=== PATIENT | female | born 1970 ===

== ENCOUNTER 2025-04-14 11:21 | Outpatient (CLI) | payer MEDICAID, SELFPAY ==
[2025-04-14 11:46] LABS: Abs Immature Grans 0.02 10^3/uL (0.0-0.06); Absolute Basophil Count 0.02 10^3/uL (0.0-0.2); Absolute Eosinophil Count 0.07 10^3/uL (0.0-0.7); Absolute Lymphocyte Count 1.08 10^3/uL (1.2-3.4); Absolute Monocyte Count 0.77 10^3/uL (0.1-0.8); Absolute Neutrophil Count 3.89 10^3/uL (1.2-6.7); Basophils % 0.3 %; Eosinophils % 1.2 %; HCT 32.4 % (36.0-46.0); HGB 10.3 g/dL (11.2-15.7); Immature Grans % 0.3 %; Lymphocytes % 18.5 %; MCH 28.9 pg (27.0-33.0); MCHC 31.8 % (32.0-36.0); MCV 91 fL (80-95); Monocytes % 13.2 %; Neutrophils % 66.5 %; Platelet Count 338 10^3/uL (130-400); RBC 3.56 10^6/uL (3.93-5.22); RDW-SD 49.8 fL; WBC 5.85 10^3/uL (4.4-10.8)
[2025-04-14 12:43] LABS: ALT 37 U/L (14-59); AST 35 U/L (15-37); Albumin 3.6 g/dL (3.4-5.0); Alkaline Phosphatase 107 U/L (46-116); Anion Gap 8.8 mmol/L (3-11); BUN 24 mg/dL (7-18); Bilirubin, Total 0.5 mg/dL (0.2-1.0); CO2 27.2 mmol/L (21.0-32.0); CREATININE 1.1 mg/dL (0.55-1.02); Calcium 9.7 mg/dL (8.5-10.1); Chloride 106 mmol/L (98-107); Estimated GFR 60.46 (mL/min/1.73m2); FREE T4 1.13 ng/dL (0.76-1.46); Glucose 104 mg/dL (74-106); LDH 235 U/L (81-234); Potassium 4.4 mmol/L (3.5-5.1); Sodium 142 mmol/L (136-145); Total Protein 8.3 g/dL (6.4-8.2)
== END 2025-04-14 11:22 | disposition home or self-care (01) ==
DX: Z79.899 Other long term (current) drug therapy (principal); C78.01 Secondary malignant neoplasm of right lung; C78.02 Secondary malignant neoplasm of left lung
CPT/HCPCS: 36415; 80053; 83615; 84439; 84443; 85025